=== PATIENT | male | born 1995 | race Hispanic/Latino ===

== ENCOUNTER 2022-04-08 09:14 | Outpatient (CLI) | payer OTHER | END 2022-04-08 09:15 | disposition home or self-care (01) | LOC: CSHCP 09:14 | PROVIDERS: ATTEND Internal Medicine Hematology & Oncology | DX: C62.12 Malignant neoplasm of descended left testis (principal); Z79.2 Long term (current) use of antibiotics; J44.9 Chronic obstructive pulmonary disease, unspecified | CPT/HCPCS: 94060; 94726; 94729; 94760 ==